=== PATIENT | female | born 1980 | race Caucasian/White ===

== ENCOUNTER 2017-11-16 10:49 | Emergency (ER) | payer MEDICARE, OTHER ==
[2017-11-16 11:35] LABS: URINE BLOOD (Dip) POC Negative (NEGATIVE); URINE GLUCOSE (Dip) POC Negative (NEGATIVE); URINE KETONES (Dip) POC Negative (NEGATIVE); URINE LEUKOCYTE EST (Dip) POC Negative (NEGATIVE); URINE NITRITE (Dip) POC Negative (NEGATIVE); URINE TOTAL PROTEIN POC Negative (NEGATIVE)
[2017-11-16 11:35] LABS: URINE PH (Dip) POC 5.5 (5.0-8.5)
[2017-11-16] MEDS: FLUCONAZOLE 150 MG TAB PO (11:51)
== END 2017-11-16 11:55 | disposition home or self-care (01) ==
LOC: FTE 10:49
DX: N76.0 Acute vaginitis (principal)
CPT/HCPCS: 81003; 81025; 99283